=== PATIENT | female | born 1980 | race Caucasian/White ===

== ENCOUNTER → 2017-02-01 | Outpatient (CLI) | payer OTHER ==
[~2017-02-01] MED LIST: HYDROCODON-ACE1 EAC7 PO; LORTAB 5/500 TA1 TA1 PO; PHENERGAN25 M1 PO; TOPAMAX PO; WELLBUTRIN XL PO
--- NOTE | ~2017-02-01 | US134 ---
[facility] A Service of [facility] RADIOLOGY TEXT RESULTS PATIENT: STEPHEN BRIGGS LOCATION: [facility] : 82 UNIT #: [id number] AGE: [address]: Marbin Dorantes MD SEX: F ORDER DR: [id number] [place] [id number] O MR#: [id number] Acc #: [id number] NAME: STEPHEN BRIGGS : 1980 SEX: F STUDY DATE/TIME: 02/01/2017 13:51 UNIT: SGUS ROOM: STUDY DESCRIPTION: Transvaginal Attending Physician: Stacy Dorantes M.D. Referring Physician: Stacy Dorantes M.D. Ordering Physician: Stacy Dorantes M.D. Primary Care Physician: Stacy Dorantes M.D. MEDICAL IMAGING REPORT This report is preliminary unless electronic signature is present. EXAM Pelvic ultrasound. INDICATIONS Vaginal spotting off and on for the past few months. PROCEDURE Varma-scale and Doppler imaging of the pelvis via transvaginal approach. COMPARISON None. FINDINGS Uterus anteverted. Endometrium measures approximately 6 mm in thickness. Uterus measures 9.2 x 3.4 x 4.3 cm. The ovaries are not well seen on this study. No free pelvic fluid. There is an IUD seen positioned in the lower uterine segment. IMPRESSION 1. IUD in place in the lower uterine segment. 2. Ovaries are not seen on the study. No pelvic fluid. Dictated by... Meir Mehta M.D. THIS IS AN ELECTRONICALLY VERIFIED REPORT Meir Mehta M.D. at 02/02/2017 8:29 AM EED/andria TD: 02/02/2017 06:37 JOB #: [id number] [facility] A Service [facility] RADIOLOGY TEXT RESULTS PATIENT: STEPHEN BRIGGS LOCATION: [facility] : 82 UNIT #: [id number] AGE: [address]: Marbin Dorantes MD SEX: F ORDER DR: MEDICAL IMAGING REPORT Page 1 of 1
== END | disposition home or self-care (01) ==
LOC: SGUS 01-20 10:30
DX: T83.32XA Displacement of intrauterine contraceptive device, initial encounter (principal)
CPT/HCPCS: 76830